=== PATIENT | female | born 1995 ===

== ENCOUNTER 2022-05-04 11:52 | Emergency (ER) | payer OTHER ==
[~2022-05-04] VITALS: Ht 160 cm; Wt 59.0 kg
[~2022-05-04 11:52] MED LIST: AUGMENTIN ES-6100 ML PO; CIPRODEX 0.3%-7.5 ML OT; TYLENOL W/ CODEI5 ML PO
[2022-05-04] MEDS ORDERED: LAMOTRIGINE200 MG PO (12:43)
[2022-05-04] MEDS ORDERED: TRAZODONE50 MG PO (12:43)
[2022-05-04 13:41] LABS: BASO % 0.6 % (0.0-1.0); EOS # 0.1 10*3/uL (0.0-0.4); EOS % 0.9 % (1.0-4.0); HEMATOCRIT 40.3 % (37.0-47.0); LYMPH # 1.7 10*3/uL (1.3-4.4); LYMPH % 23.7 % (27.0-41.0); MEAN CELL VOLUME 92.2 fl (81.0-99.0); MEAN CORPUSCULAR HGB 30.7 pg (27.0-31.0); MEAN CORPUSCULAR HGB CONC 33.3 g/dl (33.0-37.0); MEAN PLATELET VOLUME 9.7 fl (9.6-12.3); MONO # 0.4 10*3/uL (0.1-1.0); NEUT # 4.8 10*3/uL (2.3-7.9); NEUT % 69.5 % (47.0-73.0); PLATELET COUNT AUTOMATED 295 10*3/uL (130-400); RED BLOOD COUNT 4.37 10*6/uL (4.10-5.10); RED CELL DISTRI WIDTH 12.1 % (0-14.5)
[2022-05-04 14:57] LABS: ALKALINE PHOSPHATASE 78 U/L (45-117); BUN 6 mg/dl (7-24); CHLORIDE 103 mmol/L (98-107); CREATININE 0.69 mg/dL (0.55-1.02); LIPASE 70 U/L (73-393); POTASSIUM 3.8 mmol/L (3.5-5.1); SGOT/AST 8 IU/L (3-35); SGPT/ALT 19 U/L (12-78); SODIUM 139 mmol/L (136-145); TOTAL PROTEIN 7.9 gm/dL (6.4-8.2)
[2022-05-04 15:03] LABS: B-hCG (QUALITATIVE) NEGATIVE (NEGATIVE); THYROID STIM HORMONE (HS) 0.878 uIU/ml (0.358-4.75)
== END 2022-05-04 16:21 | disposition home or self-care (01) ==
LOC: ED 11:52
PROVIDERS: Family Medicine
DX: F41.9 Anxiety disorder, unspecified (principal); F17.200 Nicotine dependence, unspecified, uncomplicated